=== PATIENT | female | born 1990 | race Caucasian/White ===

== ENCOUNTER 2023-08-29 17:32 | Observation (INO) | payer OTHER ==
[~2023-08-29] VITALS: Ht 154.9 cm; Wt 80.5 kg
[2023-08-29 17:39] VITALS: BP 128/83
[2023-08-29] MEDS ORDERED: PRENA1 TRUE CO1 EAC1 PO (20:38)
[2023-08-29 21:05] LABS: BASOPHILS ABSOLUTE AUTO 0.02 K/mm3 (0.00-0.23); BASOPHILS PERCENT AUTO 0 % (0-2); EOSINOPHILS ABSOLUTE AUTO 0.11 K/mm3 (0.00-0.68); EOSINOPHILS PERCENT AUTO 1 % (0-6); Hematocrit 38.6 % (33.0-51.0); Hemoglobin 12.9 g/dL (11.5-16.0); IMMATURE GRAN ABSOLUTE AUTO 0.03 K/mm3 (0.00-0.10); IMMATURE GRAN PERCENT AUTO 0 % (0-1); LYMPHOCYTES ABSOLUTE AUTO 1.84 K/mm3 (0.84-5.20); LYMPHOCYTES PERCENT AUTO 24 % (21-46); MONOCYTES ABSOLUTE AUTO 0.53 K/mm3 (0.16-1.47); MONOCYTES PERCENT AUTO 7 % (4-13); Mean Corpuscular HGB 29.5 pg (26.0-34.0); Mean Corpuscular HGB Conc 33.4 g/dL (31.5-36.5); Mean Corpuscular Volume 88 fL (80-100); Mean Platelet Volume 10.7 fL (9.1-12.4); NEUTROPHILS ABSOLUTE AUTO 5.09 K/mm3 (1.96-9.15); NEUTROPHILS PERCENT AUTO 67 % (41-73); Platelet Count 165 K/mm3 (150-400); RDW Coefficient Variation 14.2 % (11.7-14.2); Red Blood Cell Count 4.37 M/mm3 (3.80-5.20); White Blood Cell Count 7.62 K/mm3 (4.00-11.30)
[2023-08-29 21:07] VITALS: BP 111/72
[2023-08-29 22:47] VITALS: BP 111/67
[2023-08-30 03:44] VITALS: BP 121/79
[2023-08-30 07:44] VITALS: BP 128/82
== END 2023-08-30 08:10 | disposition home or self-care (01) ==
LOC: OBS 17:32 → BC 17:32 → OBS 19:45 → BC 19:46
PROVIDERS: ADMIT Obstetrics & Gynecology
DX: O47.1 False labor at or after 37 completed weeks of gestation (principal); O99.820 Streptococcus B carrier state complicating pregnancy; Z3A.39 39 weeks gestation of pregnancy; Z88.0 Allergy status to penicillin; Z79.899 Other long term (current) drug therapy
CPT/HCPCS: 36415; 85025; 86850; 86900; 86901; 96365; 96366; 96375; A9270; G0378; J0690; J2270

== ENCOUNTER 2023-09-02 06:45 | Inpatient (IN) | payer OTHER ==
[2023-09-02] VITALS (34 sets, daily range): BP systolic 100–135; BP diastolic 57–77
[~2023-09-02] VITALS: Ht 154.9 cm; Wt 80.0 kg
[~2023-09-02 06:45] MED LIST: PRENA1 TRUE CO1 EAC1 PO
[2023-09-02 08:05] LABS: BASOPHILS ABSOLUTE AUTO 0.01 K/mm3 (0.00-0.23); BASOPHILS PERCENT AUTO 0 % (0-2); EOSINOPHILS ABSOLUTE AUTO 0.05 K/mm3 (0.00-0.68); EOSINOPHILS PERCENT AUTO 1 % (0-6); Hematocrit 37.1 % (33.0-51.0); Hemoglobin 12.5 g/dL (11.5-16.0); IMMATURE GRAN ABSOLUTE AUTO 0.06 K/mm3 (0.00-0.10); IMMATURE GRAN PERCENT AUTO 1 % (0-1); LYMPHOCYTES ABSOLUTE AUTO 1.34 K/mm3 (0.84-5.20); LYMPHOCYTES PERCENT AUTO 21 % (21-46); MONOCYTES ABSOLUTE AUTO 0.25 K/mm3 (0.16-1.47); MONOCYTES PERCENT AUTO 4 % (4-13); Mean Corpuscular HGB 29.1 pg (26.0-34.0); Mean Corpuscular HGB Conc 33.7 g/dL (31.5-36.5); Mean Corpuscular Volume 86 fL (80-100); Mean Platelet Volume 10.1 fL (9.1-12.4); NEUTROPHILS ABSOLUTE AUTO 4.73 K/mm3 (1.96-9.15); NEUTROPHILS PERCENT AUTO 73 % (41-73); Platelet Count 154 K/mm3 (150-400); RDW Coefficient Variation 14.2 % (11.7-14.2); RDW Standard Deviation 44.7 fL (35.1-46.3); White Blood Cell Count 6.44 K/mm3 (4.00-11.30)
--- NOTE | 2023-09-02 17:43 | NUR ---
PT BECAME DIZZY WALKING TO BATHROOM, VOIDED AND WE RETURNED HER TO HER BED. WILL TRY A SHOWER LATER
[2023-09-03 00:32] VITALS: BP 118/66
[2023-09-03 05:27] VITALS: BP 103/54
[2023-09-03 07:22] VITALS: BP 99/55
[2023-09-03] MEDS ORDERED: DOCU100 PO ×2 (08:10)
[2023-09-03] MEDS ORDERED: IBUP800 PO ×2 (08:10)
[2023-09-03 11:06] VITALS: BP 115/74
[2023-09-03 16:06] VITALS: BP 123/79
== END 2023-09-03 16:20 | disposition home or self-care (01) | DRG 807 ==
LOC: BC 06:45 → OBS 06:45 → BC 07:03
PROVIDERS: ADMIT Obstetrics & Gynecology
PROC: 10E0XZZ Delivery of Products of Conception, External Approach (ICD-10-PCS; principal; 2023-09-02)
PROC: 3E0R3BZ Introduction of Anesthetic Agent into Spinal Canal, Percutaneous Approach (ICD-10-PCS; 2023-09-02)
PROC: 00HU33Z Insertion of Infusion Device into Spinal Canal, Percutaneous Approach (ICD-10-PCS; 2023-09-02)
DX: O48.0 Post-term pregnancy (principal); Z37.0 Single live birth; Z3A.40 40 weeks gestation of pregnancy; O99.824 Streptococcus B carrier state complicating childbirth; Z98.890 Other specified postprocedural states; Z88.0 Allergy status to penicillin; Z88.1 Allergy status to other antibiotic agents; Z79.899 Other long term (current) drug therapy
CPT/HCPCS: 36415; 51702; 85025; 86850; 86900; 86901; A9270; J0690; J1885; J2210; J2590; J7120